=== PATIENT | male | born 1965 | race Caucasian/White ===

== ENCOUNTER 2017-01-04 14:29 | Inpatient (IN) | payer BC, OTHER ==
[~2017-01-04] VITALS: Ht 175.3 cm; Wt 92.3 kg
[2017-01-04] MEDS ORDERED: LIPITOR10 MG PO (14:36)
[2017-01-04] MEDS ORDERED: BENICAR5 MG PO (14:36)
[2017-01-04 15:27] LABS: BASOPHIL COUNT 0.1 K/uL (0-0.1); EOSINOPHIL (%) 0.1 % (0-5); HEMATOCRIT 52.7 % (38.0-50.0); IMMATURE GRANULOCYTE (%) 0.8 % (0.0-0.7); IMMATURE GRANULOCYTE COUNT 0.1 K/uL; INSTRUMENT ABS NEUTROPHIL CT 12.1 K/uL; LYMPHOCYTE COUNT 1.2 K/uL (1.0-2.8); MCH 29.4 PG (29.0-34.0); MCHC 34.3 G/DL (30.0-36.0); MCV 85.6 FL (86-99); MEAN PLAT.VOLUME 9.4 uM^3 (9.0-12.4); MONOCYTE (%) 5.5 % (3-12); MONOCYTE COUNT 0.8 K/uL (0-0.8); NEUTROPHIL (%) 84.5 % (45-76); NEUTROPHIL COUNT 12.1 K/uL (1.8-6.4); PLATELET COUNT 288 K/uL (156-360); RBC DIS.WIDTH-SD 40.3 % (39-53); RED BLOOD COUNT 6.16 M/uL (4.00-5.50); WHITE BLOOD COUNT 14.3 K/uL (4.1-10.2)
[2017-01-04 15:43] LABS: CHLORIDE 103 mEq/L (99-109)
[2017-01-04 15:44] LABS: POTASSIUM 4.5 mEq/L (3.7-5.4); SODIUM 136 mEq/L (136-147)
[2017-01-04 15:46] LABS: GLUCOSE 108 mg/dL (70-99)
[2017-01-04 15:47] LABS: ANION GAP 13 MEQ/L (2-14)
[2017-01-04 15:48] LABS: TOTAL BILIRUBIN 0.7 mg/dL (0.0-1.0)
[2017-01-04 15:49] LABS: ALKALINE PHOSPHATASE 58 IU/L (3-129)
[2017-01-04 15:50] LABS: GFR ESTIMATE (CALCULATED) > 59 mL/min/
[2017-01-04 15:51] LABS: UREA NITROGEN (BUN) 14 mg/dL (9-23)
[2017-01-04 15:53] LABS: LIPASE 34 U/L (1.0-51.0)
[2017-01-04 15:57] LABS: ADD MIUA? YES; BILIRUBIN NEGATIVE; BLOOD MODERATE; COLOR YELLOW ((YELLOW)); GLUCOSE (STRIP) NEGATIVE; KETONES NEGATIVE; LEUKOCYTES TRACE; NITRITE NEGATIVE; PROTEIN (STRIP) 30; SPECIFIC GRAVITY 1.027 (1.000-1.030); UROBILINOGEN 0.2 MG/DL (0.2-1.0)
[2017-01-04 17:11] LABS: BACTERIA NONE SEEN /HPF; EPITHELIAL CELLS RARE /HPF; MUCUS TRACE /LPF; RED BLOOD CELLS 0-5 /HPF (0-5); WHITE BLOOD CELLS 0-5 /HPF (0-5)
[2017-01-04 21:15] VITALS: BP 125/70
[2017-01-04 21:52] VITALS: BP 134/84
[2017-01-05 00:06] VITALS: BP 128/78
[2017-01-05 08:01] VITALS: BP 119/71
[2017-01-05 10:14] LABS: HEMATOCRIT 42.4 % (38.0-50.0); MCH 29.4 PG (29.0-34.0); MCHC 33.7 G/DL (30.0-36.0); MCV 87.1 FL (86-99); MEAN PLAT.VOLUME 9.8 uM^3 (9.0-12.4); PLATELET COUNT 220 K/uL (156-360); RBC DIS.WIDTH-CV 13.2 % (11.8-14.6); RBC DIS.WIDTH-SD 41.9 % (39-53)
[2017-01-05 10:19] LABS: RED BLOOD COUNT 4.87 M/uL (4.00-5.50); WHITE BLOOD COUNT 8.1 K/uL (4.1-10.2)
[2017-01-05 15:54] VITALS: BP 121/78
[2017-01-06 00:01] VITALS: BP 114/73
[2017-01-06 05:49] LABS: EOSINOPHIL (%) 3.1 % (0-5); EOSINOPHIL COUNT 0.2 K/uL (0-0.3); HEMATOCRIT 43.4 % (38.0-50.0); IMMATURE GRANULOCYTE (%) 0.3 % (0.0-0.7); INSTRUMENT ABS NEUTROPHIL CT 3.7 K/uL; LYMPHOCYTE COUNT 1.7 K/uL (1.0-2.8); MCH 29.1 PG (29.0-34.0); MCHC 33.4 G/DL (30.0-36.0); MEAN PLAT.VOLUME 9.8 uM^3 (9.0-12.4); MONOCYTE (%) 9.4 % (3-12); MONOCYTE COUNT 0.6 K/uL (0-0.8); NEUTROPHIL (%) 59.5 % (45-76); NEUTROPHIL COUNT 3.7 K/uL (1.8-6.4); PLATELET COUNT 227 K/uL (156-360); RBC DIS.WIDTH-SD 40.8 % (39-53); RED BLOOD COUNT 4.99 M/uL (4.00-5.50); WHITE BLOOD COUNT 6.2 K/uL (4.1-10.2)
[2017-01-06 08:28] VITALS: BP 120/74; BP 133/86
[2017-01-06 15:32] VITALS: BP 122/77
[2017-01-06 23:26] VITALS: BP 120/75
[2017-01-07 07:54] VITALS: BP 132/82
[2017-01-07 12:46] VITALS: BP 140/90
[2017-01-07 16:47] VITALS: BP 144/94
[2017-01-07 23:38] VITALS: BP 114/65
[2017-01-08 07:28] VITALS: BP 144/92
[2017-01-08 10:56] VITALS: BP 144/86
== END 2017-01-08 12:50 | disposition home or self-care (01) | DRG 390 ==
LOC: EME 14:29 → EXP 15:00 → 3EAST 19:00 → EDOF 19:00 → 3EAST 21:06
PROVIDERS: Physician Assistant; Surgery
DX: K56.60 Unspecified intestinal obstruction (principal); Z85.72 Personal history of non-Hodgkin lymphomas
CPT/HCPCS: 71010; 74000; 74176; 74177; 74250; 80053; 81003; 83605; 83690; 85025; 85027; 87086; 99281; 99285; J1170; J1885; J2405; J3010; J7030; S0028